=== PATIENT | male | born 1980 | race Caucasian/White ===

== ENCOUNTER → 2018-02-05 | Day surgery (SDC) | payer OTHER ==
[~2018-02-05] MED LIST: FENOFIBRATE145 MG; HYOSCYAMINE SULFATE 0.5 MG/ML AMP ONE; LIDOCAINE HCL 2% LOCAL INJ 5 ML SDV VIAL INJ ONE; LIVALO4 MG PO; LUNESTA3 MG; LUNESTA3 MG PO; MIDAZOLAM HCL 2 MG/2 ML VIAL ONE; PANTOPRAZOLE SO40 MG PO; PROPOFOL IV EMULSION 10 MG/ML 50 ML VIAL ONE; RANITIDINE; ROVUSTATIN
--- NOTE | 2018-02-05 09:21 | Operative Report ---
DATE OF PROCEDURE: February 05, 2018 REFERRING PHYSICIAN: Dr. Juan Luis Castellanos PROCEDURE PERFORMED: Colonoscopy with polypectomy. INDICATIONS FOR COLONOSCOPY: Colorectal cancer screening and personal history of colon polyps. MEDICATION: Patient was done under MAC. Please see anesthesiologist's note. PROCEDURE: With the patient in the left lateral decubitus position, the flexible fiberoptic Olympus colonoscope was inserted into the rectum with ease and advanced all the way to the cecum. There was a single diverticulum noted in the cecum. The scope was then withdrawn slowly. Mucosa overlying the ascending, transverse and descending grossly appeared to be within normal limits. Three polyps were hot biopsied and 1 polyp was removed per cold polypectomy snare in the sigmoid colon. The rectum appeared to be within normal limits. The scope was then retroflexed into the distal rectum and small internal hemorrhoids were noted, none of which was actively bleeding. The scope was then straightened out. It was subsequently withdrawn. Patient tolerated the procedure well. IMPRESSION 1. Single diverticulum, cecum. 2. Sigmoid colon polyps times 4, 1 snared, 1 cold snared, and 3 hot biopsied. 3. Internal hemorrhoids, none actively bleeding. PLAN: Follow up histology. Initiate high-fiber and low-fat diet. Initiate high-fiber supplement. Patient might benefit from a followup colonoscopy in 5 years. Job#: [id number] RI cc:JUAN LUIS CASTELLANOS DO
== END | disposition home or self-care (01) ==
LOC: ENDO 05:35
PROVIDERS: ATTEND Internal Medicine Gastroenterology
DX: Z12.11 Encounter for screening for malignant neoplasm of colon (principal); K63.5 Polyp of colon; K57.30 Diverticulosis of large intestine without perforation or abscess without bleeding; K64.8 Other hemorrhoids; K21.9 Gastro-esophageal reflux disease without esophagitis; F41.9 Anxiety disorder, unspecified; Z87.891 Personal history of nicotine dependence
CPT/HCPCS: 45384; 45385; J1980; J2001; J2250; 45378

== ENCOUNTER → 2022-02-07 | Day surgery (SDC) | payer OTHER ==
[~2022-02-07] MED LIST changes: +FLOMAX0.4 MG PO; -HYOSCYAMINE SULFATE 0.5 MG/ML AMP ONE; -LIDOCAINE HCL 2% LOCAL INJ 5 ML SDV VIAL INJ ONE; -MIDAZOLAM HCL 2 MG/2 ML VIAL ONE; -PROPOFOL IV EMULSION 10 MG/ML 50 ML VIAL ONE
[2022-02-07 09:00] VITALS: BP 108/59
== END | disposition home or self-care (01) ==
LOC: OR 06:01
PROVIDERS: ATTEND Internal Medicine Gastroenterology
DX: Z09 Encounter for follow-up examination after completed treatment for conditions other than malignant neoplasm (principal); Z86.010 Personal history of colon polyps; K57.30 Diverticulosis of large intestine without perforation or abscess without bleeding; K64.8 Other hemorrhoids; E78.5 Hyperlipidemia, unspecified; R00.1 Bradycardia, unspecified; Z01.810 Encounter for preprocedural cardiovascular examination; Z01.812 Encounter for preprocedural laboratory examination; Z20.822 Contact with and (suspected) exposure to COVID-19; Z79.899 Other long term (current) drug therapy
CPT/HCPCS: 36415; 45378; 93005; U0002; 0223U